=== PATIENT | male | born 1995 | race Two or more races ===

== ENCOUNTER 2018-07-06 11:58 | Emergency (ER) | payer MEDICAID ==
[~2018-07-06] VITALS: Ht 185.4 cm; Wt 115.7 kg
--- NOTE | 2018-07-06 12:08 | NUR ---
BIB SELF, W C/O COUGH x 4 DAYS AND STRATED COUGHING BLOOD x 2 DAYS NOW. TO ER BED 10, HOOKED TO MONITOR, AWAITNG MD [place]CAHO
--- NOTE | 2018-07-06 12:20 | NUR ---
DR KITCHEN AT BEDSIDE FOR EVAL
--- NOTE | 2018-07-06 12:50 | NUR ---
Patient discharged to home in stable condition. Written and verbal after care instructions given. Patient verbalizes understanding of instruction.
[2018-07-06 12:53] VITALS: BP 138/80
== END 2018-07-06 13:04 | disposition home or self-care (01) ==
LOC: ER 12:05
DX: J40 Bronchitis, not specified as acute or chronic (principal); B97.89 Other viral agents as the cause of diseases classified elsewhere; F10.10 Alcohol abuse, uncomplicated; Y90.9 Presence of alcohol in blood, level not specified; Z90.89 Acquired absence of other organs
CPT/HCPCS: 99283; A4606